=== PATIENT | female | born 1955 | race Hispanic/Latino ===

== ENCOUNTER → 2019-12-14 | Day surgery (SDC) | payer BC, OTHER ==
[2019-12-11 16:31] LABS: BASOPHILS % 0.4 % (0.0-1.0); EOSINOPHILS # (AUTO) 0.1 (0.0-0.4); EOSINOPHILS % 1.3 % (0.0-6.0); HEMATOCRIT 39.3 % (34.2-44.1); HEMOGLOBIN 13.2 g/dL (12.0-16.0); LYMPHOCYTES # (AUTO) 2.1 (1.0-3.2); LYMPHOCYTES % 30.7 % (18.0-39.1); MEAN CORPUSCULAR HEMOGLOBIN 29.5 pg (28-32); MEAN CORPUSCULAR HGB CONC 33.6 g/dL (31-35); MEAN CORPUSCULAR VOLUME 87.9 fL (81-99); MONOCYTES # (AUTO) 0.6 (0.2-0.8); MONOCYTES % 8.2 % (4.4-11.3); NEUTROPHILS % 59.1 % (38.7-80.0); PLATELET COUNT 198 x10e3/uL (140-360); RED BLOOD COUNT 4.47 x10e6/uL (3.6-5.1); RED CELL DISTRIBUTION WIDTH 12.1 % (11.7-14.4)
[2019-12-11 16:48] LABS: ANION GAP 12.9 mmol/L (8-16); CALCIUM 9.5 mg/dL (8.4-10.2); CREATININE, SERUM 1.08 mg/dL (0.57-1.11); POTASSIUM 3.9 mmol/L (3.5-5.1)
[~2019-12-14] MED LIST: DEXAMETHASONE SOD PHOS INJ 4 MG/ML VIAL ONE; KETOROLAC TROMETHAMINE 30 MG/ML VIAL ONE; LIDOCAINE HCL 2% LOCAL INJ 5 ML SDV VIAL INJ ONE; ONDANSETRON HCL INJ 2MG/ML 2ML 2 MG/ML VIAL ONE; PROPOFOL IV EMULSION 10 MG/ML 20 ML VIAL ONE; SEVOFLURANE INHAL SOLN 250 ML PEN BTL ONE; SIMVASTATIN20 MG PO
--- NOTE | 2019-12-14 11:28 | Operative Report ---
DATE OF PROCEDURE: 12/14/2019 SURGEON: Dima Lynn MD PREOPERATIVE DIAGNOSIS: Abscess of the right breast, chest wall, recurrent. POSTOPERATIVE DIAGNOSIS: Abscess of the right breast, chest wall, recurrent. PROCEDURE PERFORMED: Incision and drainage of abscess of the right chest wall and debridement of infected cyst. ANESTHESIA: General. ESTIMATED BLOOD LOSS: Minimal. DRAINS: None. COMPLICATIONS: None. INDICATION AND FINDINGS: The patient is a 64-year-old female, who had an incision and drainage of the abscess of the chest wall in the past under local anesthesia. She presents now with recurrence. The patient was very apprehensive about having this procedure done under local anesthesia as she had the previous drainage done at the local doctor's office and she complained of significant amount of pains. INTRAOPERATIVE FINDINGS: The patient had an infected epidermal inclusion cyst in the right lower inner quadrant of the right breast, chest wall region as much as the cyst lining encounters were debrided. Culture and sensitivities were taken. DESCRIPTION OF PROCEDURE: With the patient lying on the operative table in the supine position after administration of general anesthesia, she was prepped and draped for incision and drainage of the cyst of the right breast chest wall area. The most fluctuant region was incised and immediately came out pus non-foul smelling. It was thick as well as the lining of the cyst and contents of the cyst that were all debrided down to grossly normal tissue. Bleeding points were cauterized. The wound was then irrigated with Betadine and packed with iodoform gauze. The patient tolerated the procedure well, was taken to recovery room in stable condition. MD CLARENCE Ernandez/MODL /[id number]
[2019-12-14 11:50] VITALS: BP 120/56
== END | disposition home or self-care (01) ==
LOC: OR 06:59
PROVIDERS: ATTEND Surgery
DX: N60.81 Other benign mammary dysplasias of right breast (principal); E78.5 Hyperlipidemia, unspecified; Z01.810 Encounter for preprocedural cardiovascular examination; Z01.812 Encounter for preprocedural laboratory examination; Z11.59 Encounter for screening for other viral diseases; B95.7 Other staphylococcus as the cause of diseases classified elsewhere
CPT/HCPCS: 19120; 36415; 80048; 85025; 87071; 87186; 87205; 93005; J1100; J1885; J2001; J2405; J2704; U0002

== ENCOUNTER → 2020-02-15 | Day surgery (SDC) | payer BC, OTHER ==
[2020-02-12 16:23] LABS: BASOPHILS % 0.5 % (0.0-1.0); EOSINOPHILS # (AUTO) 0.2 (0.0-0.4); EOSINOPHILS % 3.1 % (0.0-6.0); HEMATOCRIT 38.8 % (34.2-44.1); HEMOGLOBIN 13.1 g/dL (12.0-16.0); LYMPHOCYTES # (AUTO) 2.6 (1.0-3.2); LYMPHOCYTES % 42.7 % (18.0-39.1); MEAN CORPUSCULAR HEMOGLOBIN 29.8 pg (28-32); MEAN CORPUSCULAR HGB CONC 33.8 g/dL (31-35); MEAN CORPUSCULAR VOLUME 88.2 fL (81-99); MONOCYTES # (AUTO) 0.6 (0.2-0.8); MONOCYTES % 10.2 % (4.4-11.3); NEUTROPHILS # (AUTO) 2.7 (2.1-6.9); NEUTROPHILS % 43.3 % (38.7-80.0); PLATELET COUNT 210 x10e3/uL (140-360); RED CELL DISTRIBUTION WIDTH 12.1 % (11.7-14.4)
[2020-02-12 16:37] LABS: ANION GAP 12.8 mmol/L (8-16); BLOOD UREA NITROGEN 17 mg/dL (7-26); BUN/CREATININE RATIO 20 (6-25); CARBON DIOXIDE 27 mmol/L (22-29); CHLORIDE 106 mmol/L (98-107); CREATININE, SERUM 0.83 mg/dL (0.57-1.11); EST GLOMERULAR FILTRATION RATE > 60 ML/MIN (60-); GLUCOSE 84 mg/dL (74-118); POTASSIUM 3.8 mmol/L (3.5-5.1); SODIUM 142 mmol/L (136-145)
[~2020-02-15] MED LIST changes: +BUPIVACAINE HCL 0.5% INJ 30 ML VIAL INJ ONE; +EPHEDRINE SULFATE INJ 50 MG/ML VIAL ONE; +FENTANYL CITRATE/PF 100MCG/2 ML INJ ONE; -KETOROLAC TROMETHAMINE 30 MG/ML VIAL ONE; +LIDOCAINE 2%/ EPINEPHRINE 20ML MDV ONE; +MIDAZOLAM HCL 2 MG/2 ML VIAL ONE
--- NOTE | 2020-02-15 11:30 | Operative Report ---
DATE OF PROCEDURE: 02/15/2020 SURGEON: Dima Lynn MD PREOPERATIVE DIAGNOSIS: Inclusion cyst of the right chest wall, status post incision and drainage of abscess of the same, cyst of the left nuchal area. POSTOPERATIVE DIAGNOSIS: Inclusion cyst of the right chest wall, status post incision and drainage of abscess of the same, cyst of the left nuchal area. PROCEDURE PERFORMED: Excision with flap closure of previously drained cyst of the right chest wall. ANESTHESIA: General. ESTIMATED BLOOD LOSS: Minimal. DRAINS: None. COMPLICATIONS: None. INDICATION AND FINDINGS: The patient is a 64-year-old female who had undergone excision of inclusion cyst of the right chest wall because it was infected with abscess and now healed. She was admitted for excision of the site. In addition to that, she had a cyst located on the left side of the nuchal region which was also planned to be excised. However, the patient at the last moment while in the holding area of the operating room, decided that she did not want to have the cyst in that area removed if it meant that she would have to have the hair shaving in that location. Therefore, she refused to have it removed. INTRAOPERATIVE FINDINGS: The patient had at this time the scar tissue formation in the right chest, located in the area of the submammary sulcus. There was no evidence of any active infection. DESCRIPTION OF PROCEDURE: With the patient lying on the operative table in the supine position after administration of general anesthesia, she was prepped and draped for excision with flap closure of cyst of the right chest area previously drained. An elliptical incision was made over that location after infiltration with 0.25% Marcaine and then an elliptical incision was made deepened through the skin and subcutaneous tissue, down to the subcutaneous fat, where there was no evidence of scar formation or cyst residual lining. Full-thickness subcutaneous with skin flaps were raised with electrocautery and then the wound was closed using 2-0 Vicryl for the soft tissues, 3-0 Vicryl for the subcuticular plane, and the skin was closed using 3-0 vertical mattress silk sutures. Sterile dressing was applied. The patient tolerated the procedure well, was taken to recovery room in stable condition. MD CLARENCE Ernandez/MARIA T /[id number]
[2020-02-15 11:40] VITALS: BP 137/69
== END | disposition home or self-care (01) ==
LOC: OR 07:17
PROVIDERS: ATTEND Surgery
DX: L72.0 Epidermal cyst (principal); L72.8 Other follicular cysts of the skin and subcutaneous tissue; I49.3 Ventricular premature depolarization; E78.5 Hyperlipidemia, unspecified; Z01.812 Encounter for preprocedural laboratory examination; Z11.59 Encounter for screening for other viral diseases; Z87.891 Personal history of nicotine dependence
CPT/HCPCS: 14000; 36415; 80048; 85025; J1100; J2001 ×2; J2250; J2405; J2704; J3010; U0002